=== PATIENT | female | born 1985 | race Caucasian/White ===

== ENCOUNTER 2020-10-26 15:34 | Day surgery (SDC) | payer OTHER ==
[2020-10-26 16:46] VITALS: BMI 38.4
[2020-10-26] MEDS ORDERED: hydrALAZINE 20 MG/ML VIAL SLOW IVP PRN (17:35)
[2020-10-26] MEDS ORDERED: Lactated Ringer's 1,000 ML IV SCH (17:45)
[2020-10-26 21:32] LABS: SARS-CoV-2 NAA Rapid Test Not Detected (NotDetected)
== END 2020-10-26 19:27 | disposition home or self-care (01) ==
LOC: CSHLD/OP 15:34
PROVIDERS: ATTEND Family Medicine
DX: O36.8120 Decreased fetal movements, second trimester, not applicable or unspecified (principal); O99.891 Other specified diseases and conditions complicating pregnancy; R50.9 Fever, unspecified; O99.282 Endocrine, nutritional and metabolic diseases complicating pregnancy, second trimester; E86.0 Dehydration; O99.342 Other mental disorders complicating pregnancy, second trimester; F43.10 Post-traumatic stress disorder, unspecified; F32.9 Major depressive disorder, single episode, unspecified; F41.9 Anxiety disorder, unspecified; O99.352 Diseases of the nervous system complicating pregnancy, second trimester; G47.00 Insomnia, unspecified; O99.212 Obesity complicating pregnancy, second trimester; O99.332 Smoking (tobacco) complicating pregnancy, second trimester; F17.200 Nicotine dependence, unspecified, uncomplicated; O34.219 Maternal care for unspecified type scar from previous cesarean delivery; Z3A.24 24 weeks gestation of pregnancy; Z79.899 Other long term (current) drug therapy; Z88.2 Allergy status to sulfonamides; Z88.6 Allergy status to analgesic agent; Z88.8 Allergy status to other drugs, medicaments and biological substances; Z20.822 Contact with and (suspected) exposure to COVID-19
CPT/HCPCS: 0240U; 96360; 96361; 99283

== ENCOUNTER 2021-01-23 14:26 | Day surgery (SDC) | payer OTHER ==
[2021-01-23 16:09] VITALS: BMI 37.6
[2021-01-23] MEDS ORDERED: hydrALAZINE 20 MG/ML VIAL SLOW IVP PRN (16:10)
[2021-01-23] MEDS ORDERED: Lactated Ringer's 1,000 ML IV SCH ×2 (16:15→17:45)
[2021-01-23] MEDS ORDERED: Promethazine 25 MG TAB PO SCH (20:00)
== END 2021-01-23 20:20 | disposition home or self-care (01) ==
LOC: CSHLD/OP 14:26
PROVIDERS: ATTEND Family Medicine
DX: O47.1 False labor at or after 37 completed weeks of gestation (principal); O46.93 Antepartum hemorrhage, unspecified, third trimester; O99.213 Obesity complicating pregnancy, third trimester; O99.333 Smoking (tobacco) complicating pregnancy, third trimester; F17.200 Nicotine dependence, unspecified, uncomplicated; O99.283 Endocrine, nutritional and metabolic diseases complicating pregnancy, third trimester; E86.0 Dehydration; O98.813 Other maternal infectious and parasitic diseases complicating pregnancy, third trimester; B37.3 Candidiasis of vulva and vagina; O99.891 Other specified diseases and conditions complicating pregnancy; R82.71 Bacteriuria; O21.2 Late vomiting of pregnancy; Z3A.37 37 weeks gestation of pregnancy; Z79.899 Other long term (current) drug therapy; Z88.2 Allergy status to sulfonamides; Z88.6 Allergy status to analgesic agent; Z88.8 Allergy status to other drugs, medicaments and biological substances
CPT/HCPCS: 76815; 96360; 96361; 99284; Q0169

== ENCOUNTER 2021-02-02 09:01 | Outpatient (CLI) | payer OTHER ==
[2021-02-02 18:14] LABS: SARS-CoV-2 PCR by NAA Not Detected (NotDetected)
== END 2021-02-02 09:02 | disposition home or self-care (01) ==
LOC: CSHLAB 09:01
PROVIDERS: ATTEND Family Medicine
DX: Z20.822 Contact with and (suspected) exposure to COVID-19 (principal)
CPT/HCPCS: U0003; U0005

== ENCOUNTER 2021-02-03 10:07 | Inpatient (IN) | payer OTHER ==
[2021-02-03] MEDS ORDERED: Metoclopramide HCl 10 MG/2 ML VIAL ONE (10:47)
[2021-02-03] MEDS ORDERED: Ketorolac Tromethamine 30 MG/ML VIAL ONE (10:47)
[2021-02-03] MEDS ORDERED: Phenylephrine 40 MG/NS 250 ML 250 ML ONE (10:47)
[2021-02-03] MEDS ORDERED: Ondansetron PF 4 MG/2 ML Vial ONE (10:47)
[2021-02-03] MEDS ORDERED: Dexamethasone 4 mg/ml Vial ONE ×2 (10:47→12:41)
[2021-02-03] MEDS ORDERED: PHENYLEPHRINE-NS 100 MCG/ML 10 ML SYRINGE ONE (10:47)
[2021-02-03] MEDS ORDERED: Oxytocin 10 UNITS/ML VIAL ONE (10:47)
[2021-02-03] MEDS ORDERED: Morphine PF 10 MG/10 ML VIAL ONE (10:52)
[2021-02-03 10:58] VITALS: BMI 37.6
[2021-02-03] MEDS ORDERED: Famotidine/PF 20 mg/2ml Vial SLOW IVP PRN (11:18)
[2021-02-03] MEDS ORDERED: hydrALAZINE 20 MG/ML VIAL SLOW IVP PRN ×2 (11:18→13:32)
[2021-02-03] MEDS ORDERED: Promethazine HCl 25 MG/ML VIAL IM PRN ×3 (11:18→17:02)
[2021-02-03] MEDS ORDERED: Docusate 100 MG CAP PO PRN (11:18)
[2021-02-03] MEDS ORDERED: Ondansetron PF 4 MG/2 ML Vial IVP PRN ×2 (11:18→13:32)
[2021-02-03] MEDS ORDERED: Acetaminophen 500 MG TAB PO PRN (11:18)
[2021-02-03] MEDS ORDERED: Promethazine HCl 25 MG/ML VIAL ONE (11:18)
[2021-02-03] MEDS ORDERED: Bicitra 30 ML UDCUP PO PRN (11:18)
[2021-02-03] MEDS ORDERED: Famotidine/PF 20 mg/2ml Vial ONE (11:19)
[2021-02-03] MEDS ORDERED: CEFAZOLIN 2 GM in Premix Bag 1 BAG IVPB SCH (11:30)
[2021-02-03] MEDS ORDERED: Lactated Ringer's 1,000 ML IV SCH (11:30)
[2021-02-03 11:56] LABS: Mean Corpuscular HGB CONC 32.4 g/dL (32.0-36.0); Mean Corpuscular Hemoglobin 27.8 pg (27.0-33.0); Mean Corpuscular Volume 85.8 fl (81.6-98.3); Mean Platelet Volume 10.3 fl (7.4-10.4); Platelet Count 333 10x3/uL (150-450); RBC Distribution Width 13.8 % (11.5-14.5); White Blood Cell (WBC) Count 10.6 10x3/uL (3.5-10.5)
[2021-02-03 12:17] LABS: Amphetamine Not Detected (NotDetected); Barbiturates Screen Not Detected (NotDetected); Benzodiazepine Screen Not Detected (NotDetected); Cocaine Metabolite Screen Not Detected (NotDetected); Methadone Not Detected (NotDetected); Methamphetamine Not Detected (NotDetected); Opiate Screen Not Detected (NotDetected); Oxycodone Screen Not Detected (NotDetected); Phencyclidine (PCP) Not Detected (NotDetected); THC/Cannabinoid Screen Not Detected (NotDetected); Tricyclic Screen Detected (NotDetected)
[2021-02-03 12:27] LABS: Hep B Surf Ag Non-Reactive S/CO (NonReactive); Syphilis Antibody Nonreactive (Nonreactive); Syphilis Antibody Index 0.03 S/CO (<1.00 Non-Reactive)
[2021-02-03 12:35] LABS: HBSAg Index 0.18 S/CO (0-0.99)
[2021-02-03] MEDS ORDERED: ePHEDrine Sulfate 50 MG/10 ML VIAL ONE (12:37)
[2021-02-03] MEDS ORDERED: Acetaminophen 325 MG TAB PO PRN (13:32)
[2021-02-03] MEDS ORDERED: Lanolin Ointment 7 GM TUBE TOP PRN (13:32)
[2021-02-03] MEDS ORDERED: diphenhydrAMINE 25 MG CAP PO PRN ×2 (13:32→17:02)
[2021-02-03] MEDS ORDERED: Misoprostol 200 MCG TAB PR PRN (13:32)
[2021-02-03] MEDS ORDERED: Bisacodyl 10 MG SUPP PR PRN (13:32)
[2021-02-03] MEDS ORDERED: Simethicone Chewable 80 MG TAB PO PRN (13:32)
[2021-02-03] MEDS ORDERED: Naloxone HCl 0.4 mg/ml Vial IV PRN ×2 (13:41→17:02)
[2021-02-03] MEDS ORDERED: diphenhydrAMINE 50 MG/ML VIAL IVP PRN ×2 (13:41→17:02)
[2021-02-03] MEDS ORDERED: Hydrocerin (Eucerin) Cream 120 gm Jar TOP PRN (13:41)
[2021-02-03] MEDS ORDERED: Meperidine HCl/PF 25 MG/ML VIAL SLOW IVP PRN (13:41)
[2021-02-03] MEDS ORDERED: Fentanyl 100 MCG/2 ML VIAL SLOW IVP PRN (13:41)
[2021-02-03] MEDS ORDERED: Promethazine HCl 25 MG SUPP PR PRN (13:41)
[2021-02-03] MEDS ORDERED: Naloxone HCl 0.4 mg/ml Vial IVP PRN ×2 (13:41)
[2021-02-03] MEDS ORDERED: NS w/ Oxytocin 30 units 500 ML IV SCH (13:45)
[2021-02-03] MEDS ORDERED: Communication Order-Pharmacy FS SCH ×2 (13:45→17:15)
[2021-02-03] MEDS ORDERED: Milk Of Magnesia 30 ML UDCUP PO PRN (15:14)
[2021-02-03] MEDS ORDERED: diphenhydrAMINE 50 MG/ML VIAL IM PRN (17:02)
[2021-02-03] MEDS ORDERED: HYDROmorphone 10 mg/100 ml CADD IVPB PRN (17:02)
[2021-02-03] MEDS ORDERED: HYDROmorphone 40 MG/20 ML 10 MG in Sodium Chloride 0.9% 45 ML IV PRN (17:15)
[2021-02-03] MEDS ORDERED: SODIUM CHLORIDE IVPB PRN (17:30)
[2021-02-03] MEDS ORDERED: HYDROMORPHONE HCL IVPB PRN (17:30)
[2021-02-03] MEDS ORDERED: ADMIXTURE FEE IVPB PRN (17:30)
[2021-02-03] MEDS ORDERED: Ketorolac Tromethamine 30 MG/ML VIAL IVP PRN (19:00)
[2021-02-03] MEDS ORDERED: Promethazine 25 MG TAB PO PRN (21:00)
[2021-02-03] MEDS ORDERED: traMADol HCl 50 MG TAB PO SCH (21:00)
[2021-02-03] MEDS ORDERED: BUPRENORPHINE HCL 2 MG PO SCH (21:00)
[2021-02-03] MEDS ORDERED: BUPRENORPHINE 2 MG PO SCH (21:00)
[2021-02-03] MEDS: Venlafaxine HCl XR 75 MG CAP PO SCH (22:07)
[2021-02-03] MEDS: Gabapentin 300 MG CAP PO SCH (22:07)
[2021-02-03] MEDS: Folic Acid 1 MG TAB PO SCH (22:07)
[2021-02-03] MEDS: Propranolol HCl LA 60 MG CAP PO SCH (22:08)
[2021-02-03] MEDS: PRAZOSIN PO SCH ×2 (22:37)
[2021-02-03] MEDS: ROPINIROLE 4 MG PO SCH (22:37)
[2021-02-03] MEDS: Ferrous Sulfate 325 MG TAB PO SCH (23:13)
[2021-02-04] MEDS ORDERED: HYDROcodone/Acetaminophen 5/325 mg Tablet PO PRN ×2 (01:45)
[2021-02-04] MEDS ORDERED: Zolpidem Tartrate 5 MG TAB PO SCH (01:45)
[2021-02-04] MEDS ORDERED: Zolpidem Tartrate 5 MG TAB PO PRN (01:45)
[2021-02-04 04:36] LABS: Hemoglobin 8.5 g/dL (12.0-15.5); Mean Corpuscular HGB CONC 33.2 g/dL (32.0-36.0); Mean Corpuscular Hemoglobin 28.6 pg (27.0-33.0); Mean Corpuscular Volume 86.2 fl (81.6-98.3); Mean Platelet Volume 10.2 fl (7.4-10.4); Platelet Count 294 10x3/uL (150-450); RBC Distribution Width 13.7 % (11.5-14.5); Red Blood Cell (RBC) Count 2.97 10x6/uL (3.90-5.03); White Blood Cell (WBC) Count 18.6 10x3/uL (3.5-10.5)
[2021-02-04] MEDS ORDERED: ROPINIROLE HCL 2 MG PO SCH (09:00)
[2021-02-04] MEDS ORDERED: Gabapentin 300 MG CAP PO SCH (09:00)
[2021-02-04] MEDS ORDERED: PRAZOSIN HCL 5 MG PO SCH (09:00)
[2021-02-04] MEDS: Gabapentin 300 MG CAP PO SCH ×3 (09:58→21:20)
[2021-02-04] MEDS: Ferrous Sulfate 325 MG TAB PO SCH ×2 (09:58→21:21)
[2021-02-04] MEDS: Polyethylene Glycol 3350 17 GM Packet PO SCH (09:58)
[2021-02-04] MEDS: Prenatal Vitamin 1 TAB PO SCH (09:58)
[2021-02-04] MEDS ORDERED: Boostrix 0.5 ML (Tdap) VIAL IM ONE (13:32)
[2021-02-04] MEDS: Acetaminophen 325 MG TAB PO SCH ×3 (15:00→21:20)
[2021-02-04] MEDS: Ibuprofen 800 MG TAB PO SCH (17:52)
[2021-02-04] MEDS: Propranolol HCl LA 60 MG CAP PO SCH (21:21)
[2021-02-04] MEDS: Zolpidem Tartrate 5 MG TAB PO SCH (21:21)
[2021-02-04] MEDS: ROPINIROLE 4 MG PO SCH (21:22)
[2021-02-04] MEDS: PRAZOSIN PO SCH ×2 (21:22)
[2021-02-04] MEDS: Venlafaxine HCl XR 75 MG CAP PO SCH (21:23)
[2021-02-04] MEDS: BUPRENORPHINE 2 MG PO SCH (21:23)
[2021-02-05] MEDS: Folic Acid 1 MG TAB PO SCH ×2 (00:07→20:48)
[2021-02-05] MEDS: Ibuprofen 800 MG TAB PO SCH ×3 (01:15→17:02)
[2021-02-05] MEDS: Acetaminophen 325 MG TAB PO SCH ×6 (02:55→20:48)
[2021-02-05] MEDS: Prenatal Vitamin 1 TAB PO SCH (09:53)
[2021-02-05] MEDS: Ferrous Sulfate 325 MG TAB PO SCH ×2 (09:54→20:49)
[2021-02-05] MEDS: BUPRENORPHINE 2 MG PO SCH ×2 (09:54→20:49)
[2021-02-05] MEDS: Gabapentin 300 MG CAP PO SCH (09:54)
[2021-02-05] MEDS: Polyethylene Glycol 3350 17 GM Packet PO SCH (10:48)
[2021-02-05] MEDS ORDERED: Gabapentin 100 MG CAP PO SCH (15:00)
[2021-02-05] MEDS: traMADol HCl 50 MG TAB PO PRN (20:46)
[2021-02-05] MEDS: Zolpidem Tartrate 5 MG TAB PO SCH (20:47)
[2021-02-05] MEDS: Gabapentin 100 MG CAP PO SCH (20:48)
[2021-02-05] MEDS: PRAZOSIN PO SCH ×2 (20:49→20:50)
[2021-02-05] MEDS: ROPINIROLE 4 MG PO SCH (20:50)
[2021-02-05] MEDS: Propranolol HCl LA 60 MG CAP PO SCH (20:54)
[2021-02-05] MEDS: Venlafaxine HCl XR 75 MG CAP PO SCH (20:54)
[2021-02-06] MEDS: Acetaminophen 325 MG TAB PO SCH ×6 (01:06→20:58)
[2021-02-06] MEDS: Ibuprofen 800 MG TAB PO SCH ×3 (01:07→16:00)
[2021-02-06] MEDS: Polyethylene Glycol 3350 17 GM Packet PO SCH (09:16)
[2021-02-06] MEDS: Prenatal Vitamin 1 TAB PO SCH (09:48)
[2021-02-06] MEDS: traMADol HCl 50 MG TAB PO PRN ×2 (09:49→20:57)
[2021-02-06] MEDS: Ferrous Sulfate 325 MG TAB PO SCH ×2 (09:49→20:58)
[2021-02-06] MEDS: Gabapentin 100 MG CAP PO SCH ×3 (09:49→20:57)
[2021-02-06] MEDS: BUPRENORPHINE 2 MG PO SCH ×2 (09:50→20:59)
[2021-02-06] MEDS: Zolpidem Tartrate 5 MG TAB PO SCH (20:57)
[2021-02-06] MEDS: Folic Acid 1 MG TAB PO SCH (20:58)
[2021-02-06] MEDS: Venlafaxine HCl XR 75 MG CAP PO SCH (20:58)
[2021-02-06] MEDS: Propranolol HCl LA 60 MG CAP PO SCH (20:59)
[2021-02-06] MEDS: PRAZOSIN PO SCH ×2 (21:00→21:01)
[2021-02-06] MEDS: ROPINIROLE 4 MG PO SCH (21:01)
[2021-02-06 21:04] VITALS: BP 126/59; TEMP 98.5
[2021-02-07] MEDS: Ibuprofen 800 MG TAB PO SCH ×2 (01:16→10:32)
[2021-02-07] MEDS: Acetaminophen 325 MG TAB PO SCH ×3 (01:16→10:32)
[2021-02-07] MEDS ORDERED: Lidocaine 5% Patch TD SCH (09:00)
[2021-02-07] MEDS: Prenatal Vitamin 1 TAB PO SCH (10:31)
[2021-02-07] MEDS: BUPRENORPHINE 2 MG PO SCH (10:31)
[2021-02-07] MEDS: Ferrous Sulfate 325 MG TAB PO SCH (10:32)
[2021-02-07] MEDS: Gabapentin 100 MG CAP PO SCH (10:33)
[2021-02-07] MEDS: Polyethylene Glycol 3350 17 GM Packet PO SCH (10:34)
[2021-02-07] MEDS ORDERED: Transdermal Patch Removal TOP SCH (21:00)
== END 2021-02-07 14:55 | disposition home or self-care (01) | DRG 787 ==
LOC: CSHLD 10:07 → CSHPED 16:02
PROVIDERS: ADMIT Obstetrics & Gynecology; ATTEND Obstetrics & Gynecology
PROC: 10D00Z1 Extraction of Products of Conception, Low, Open Approach (ICD-10-PCS; principal; 2021-02-03)
DX: O34.211 Maternal care for low transverse scar from previous cesarean delivery (principal); Z3A.38 38 weeks gestation of pregnancy; Z37.0 Single live birth; O99.354 Diseases of the nervous system complicating childbirth; O99.324 Drug use complicating childbirth; F43.10 Post-traumatic stress disorder, unspecified; F32.A Depression, unspecified; F41.9 Anxiety disorder, unspecified; G43.909 Migraine, unspecified, not intractable, without status migrainosus; O99.344 Other mental disorders complicating childbirth; O99.334 Smoking (tobacco) complicating childbirth; F17.210 Nicotine dependence, cigarettes, uncomplicated; O77.0 Labor and delivery complicated by meconium in amniotic fluid; O69.81X0 Labor and delivery complicated by cord around neck, without compression, not applicable or unspecified; O99.214 Obesity complicating childbirth; E66.01 Morbid (severe) obesity due to excess calories; F11.10 Opioid abuse, uncomplicated; G89.29 Other chronic pain; G47.00 Insomnia, unspecified; O90.81 Anemia of the puerperium; D64.9 Anemia, unspecified; Z87.440 Personal history of urinary (tract) infections; Z90.49 Acquired absence of other specified parts of digestive tract; Z90.89 Acquired absence of other organs; Z79.899 Other long term (current) drug therapy; Z88.6 Allergy status to analgesic agent; Z88.1 Allergy status to other antibiotic agents; Z88.2 Allergy status to sulfonamides; Z88.8 Allergy status to other drugs, medicaments and biological substances; Z79.891 Long term (current) use of opiate analgesic
CPT/HCPCS: 36415; 51702; 80306; 85027; 86780; 86850; 86900; 86901; 87340; 88307; J1100; J1170; J1885; J2274; J2405; J2550; J2590; J2765; S0028